=== PATIENT | female | born 1990 | race Caucasian/White ===

== ENCOUNTER → 2020-01-08 15:38 | Outpatient (BNVA) | payer OTHER, SELFPAY | PROVIDERS: Family Provider Family Medicine; PCP Electrodiagnostic Medicine; Visit Provider Obstetrics & Gynecology | DX: B37.3 Candidiasis of vulva and vagina (principal); A60.00 Herpesviral infection of urogenital system, unspecified | CPT/HCPCS: 87210 ==

== ENCOUNTER → 2020-01-17 15:00 | Outpatient (BNVA) | payer OTHER, SELFPAY | PROVIDERS: Family Provider Family Medicine; PCP Electrodiagnostic Medicine; Visit Provider Nurse Practitioner Family | DX: Z11.59 Encounter for screening for other viral diseases (principal); R05 Cough | CPT/HCPCS: 87635 ==

== ENCOUNTER → 2021-06-21 10:47 | Outpatient (BNVA) | payer OTHER, SELFPAY | PROVIDERS: Family Provider Family Medicine; Visit Provider Obstetrics & Gynecology | DX: Z12.4 Encounter for screening for malignant neoplasm of cervix (principal) | CPT/HCPCS: 87624 ==

== ENCOUNTER → 2022-02-14 16:05 | Outpatient (BNVA) | payer OTHER, SELFPAY | PROVIDERS: Family Provider Family Medicine; PCP Family Medicine; Visit Provider Registered Nurse Neonatal Intensive Care | DX: N39.0 Urinary tract infection, site not specified (principal); R39.9 Unspecified symptoms and signs involving the genitourinary system | CPT/HCPCS: 81000; 87077; 87086; 87184 ==